=== PATIENT | male | born 1950 | race Caucasian/White ===

== ENCOUNTER 2024-09-29 13:20 | Emergency (ER) | payer MEDICARE, SELFPAY ==
[2024-09-29 13:32] VITALS: BP 184/97; PULSE 68; RESP 16; TEMP 36.6; O2SAT 98; BMI 27.3
--- NOTE | 2024-09-29 13:37 | PC.NURSE ---
Left wrist pain and swelling. Pulses intact. Pt denies any trauma to wrist. Pt skin warm and intact. Pt states he was seen for the same 3 weeks ago and was told he had osteoarthritis.
--- NOTE | 2024-09-29 13:48 | DI.RAD.S_ITS ---
PROCEDURE: XR WRIST LT MIN 3V INDICATIONS: wrist pain and swelling TECHNIQUE: 3 views of the wrist were acquired. COMPARISON: None. FINDINGS: Bones: No fractures or dislocations. Osteoarthritic changes are noted along radial aspect of left wrist. No suspicious bony lesions. Soft tissues: No suspicious soft tissue calcifications. IMPRESSION: No acute left wrist fracture or dislocation. Left wrist joint osteoarthritis. Dictated by: Sean Paredes M.D. on 09/29/2024 at 14:41 Approved by: Sean Paredes M.D. on 09/29/2024 at 14:41
--- NOTE | 2024-09-29 13:48 | ED_ITS ---
HPI - General Adult General Chief complaint: Extremity Injury, Upper Stated complaint: Left thumb pain Time Seen by Provider: 09/29/24 13:43 Source: patient Mode of arrival: Ambulatory Limitations: no limitations History of Present Illness HPI narrative: Patient is a 73-year-old male who is here for evaluation of swelling and discomfort to the left thumb/wrist. He reports that his symptoms started 7-14 days ago. No specific trauma. Did have his 1st evaluated. Was told that he had ?osteoarthritis? he states that the conservative measures that he has been doing have not been helping. He was discomfort of the thumb in the wrist. No fevers. No history of gout. Discomfort with movement of the left wrist. His left elbows unremarkable. Related Data Previous Rx's Medication Instructions Recorded prednisone 20 mg tablet 20 mg PO DAILY 5 days #5 tabs 09/29/24 Allergies Allergy/AdvReac Type Severity Reaction Status Date / Time No Known Drug Allergies Allergy Verified 09/29/24 13:37 Review of Systems Review of Systems Narrative: See HPI Patient History Social History Smoking Status: Former smoker Smoking Status: Former smoker Exam Initial Vital Signs Initial Vital Signs: Vital Signs Temperature 97.9 F 09/29/24 13:32 Pulse Rate 68 09/29/24 13:32 Respiratory Rate 16 09/29/24 13:32 Blood Pressure 184/97 H 09/29/24 13:32 Pulse Oximetry 98 09/29/24 13:32 Oxygen Delivery Method Room Air 09/29/24 13:32 Const General: cooperative and comfortable Cardio Pulses: radial pulses present on the left Skin General: no rashes or lesions noted Neuro Sensory Exam: no sensory deficits noted Extrem Other: Swelling to the radial aspect of the left wrist in the thenar aspect of the left thumb. Decreased range of motion with flexion and extension. Left elbows unremarkable. Course Orders Ordered: ED Orders 09/29/24 13:48 XR wrist LT min 3V Stat 09/29/24 14:06 Complete Blood Count AUTO DIFF Stat Comprehensive Metabolic Panel Stat Lipase Stat Uric Acid Stat Vital Signs Vital signs: Vital Signs - 8 hr 09/29/24 13:32 Temperature 97.9 F Pulse Rate 68 Respiratory Rate 16 Blood Pressure 184/97 H Pulse Oximetry 98 Oxygen Delivery Method Room Air Medical Decision Making Lab Data Lab results reviewed: Yes I reviewed the patient's lab results. 09/29/24 14:06 09/29/24 14:06 Labs: Lab Results 09/29/24 Range/Units 14:06 WBC 9.0 (4.5-11.0) X10^3/uL RBC 6.50 H (4.5-5.9) X10^6/uL Hgb 13.5 (13.5-17.5) g/dL Hct 43.2 (41-53) % MCV 66.4 L (80-100) fL MCH 20.8 L (26-34) PG MCHC 31.4 (30-36) % RDW 16.0 H (11.6-14.8) % Plt Count 139 L (150-400) X10^3/uL Neut % (Auto) 59.3 (50-75) % Lymph % (Auto) 26.4 (25-40) % [place] % (Auto) 8.8 (3-14) % Eos % (Auto) 4.1 H (2-4) % Baso % (Auto) 1.4 (0-2) % Neut # (Auto) 5300 (7760-1518) /uL Lymph # (Auto) 2400 (0087-3085) /uL [place] # (Auto) 800 (0-900) /uL Eos # (Auto) 400 (0-450) /uL Baso # (Auto) 100 (0-100) /uL RBC Morphology Not Reportable Poikilocytosis 1+ H Microcytosis 3+ H Sodium 138 (137-145) mmol/L Potassium 4.2 (3.4-5.1) mmol/L Chloride 108 H (98-107) mmol/L Carbon Dioxide 24 (22-32) mmol/L BUN 21 H (9-20) mg/dL Creatinine 1.07 (0.66-1.25) mg/dL Estimated GFR > 60 (>60) mL/min BUN/Creatinine Ratio 19.6 (6-22) Glucose 98 (80-110) mg/dL Uric Acid 6.8 (3.5-8.5) mg/dL Calcium 9.3 (8.4-10.2) mg/dL Total Bilirubin 0.9 (0.2-1.3) mg/dL AST 28 (17-59) IU/L ALT 25 (<50) IU/L Alkaline Phosphatase 72 (38-126) U/L Total Protein 7.3 (6.3-8.2) g/dL Albumin 4.2 (3.5-5.0) g/dL Globulin 3.1 (1.7-4.1) g/dL Albumin/Globulin Ratio 1.4 (1.0-2.8) Lipase 382 H (23-300) U/L Imaging Data Extremity x-ray #1: Radiologist's Impression: PROCEDURE: XR WRIST LT MIN 3V INDICATIONS: wrist pain and swelling TECHNIQUE: 3 views of the wrist were acquired. COMPARISON: None. FINDINGS: Bones: No fractures or dislocations. Osteoarthritic changes are noted along radial aspect of left wrist. No suspicious bony lesions. Soft tissues: No suspicious soft tissue calcifications. IMPRESSION: No acute left wrist fracture or dislocation. Left wrist joint osteoarthritis. MDM Narrative Medical decision making narrative: Patient's exam is not consistent with a cellulitis. Low suspicion for septic joint. Low suspicion for gout. X-ray shows no fractures. He has been diagnosed with arthritis which does correspond to his symptoms today. He does have a wrist brace given to him from the outside facility and I advised that he continue to wear this for soft tissue rest. He has been taking Tylenol without much improvement. Will put him on steroids for the next couple days. Advised that he follow up with his primary doctor. He was given return precautions. He expressed understanding and agreement. Discharge Plan Departure Patient Disposition: Home Clinical Impression: Arthritis Instructions: How To Perform RICE (Rest, Ice, Compress, Elevate), DI for Arthritis Activity Restrictions/Additional Instructions: I do recommend that you continue to use the wrist brace that you were given for soft tissue rest. Use ice over the area as well. Contact your primary care doctor for a follow-up. Return to the emergency department for new symptoms. Prescriptions: New prednisone 20 mg tablet 20 mg PO DAILY 5 Days Qty: 5 0RF Stand Alone Forms: Patient Portal/API/Survey
[2024-09-29 14:15] LABS: Add Manual Diff / Slide Review NO; Basophils Absolute Auto 100 /uL (0-100); Basophils Percent Auto 1.4 % (0-2); Eosinophils Absolute Auto 400 /uL (0-450); Eosinophils Percent Auto 4.1 % (2-4); Hematocrit 43.2 % (41-53); Hemoglobin 13.5 g/dL (13.5-17.5); Lymphocytes Absolute Auto 2400 /uL (1100-4500); Lymphocytes Percent Auto 26.4 % (25-40); Mean Corpuscular HGB Conc 31.4 % (30-36); Mean Corpuscular Hemoglobin 20.8 PG (26-34); Mean Corpuscular Volume 66.4 fL (80-100); Monocytes Absolute Auto 800 /uL (0-900); Monocytes Percent Auto 8.8 % (3-14); Neutrophils Absolute Auto 5300 /uL (1500-7000); Neutrophils Percent Auto 59.3 % (50-75); Platelet Count 139 X10^3/uL (150-400)
[2024-09-29 14:25] LABS: Alanine Aminotransferase 25 IU/L (<50); Albumin 4.2 g/dL (3.5-5.0); Albumin Globulin Ratio 1.4 (1.0-2.8); Alkaline Phosphatase 72 U/L (38-126); Aspartate Aminotransferase 28 IU/L (17-59); BUN Creatinine Ratio 19.6 (6-22); Bilirubin Total 0.9 mg/dL (0.2-1.3); Blood Urea Nitrogen 21 mg/dL (9-20); Calcium 9.3 mg/dL (8.4-10.2); Carbon Dioxide 24 mmol/L (22-32); Chloride 108 mmol/L (98-107); Estimated Glomerular Filt Rate > 60 mL/min (>60); Globulin 3.1 g/dL (1.7-4.1); Glucose 98 mg/dL (80-110); HEMOLYSIS < 15 (0-50); Lipase 382 U/L (23-300); Potassium 4.2 mmol/L (3.4-5.1); Sodium 138 mmol/L (137-145); Total Protein 7.3 g/dL (6.3-8.2); Uric Acid 6.8 mg/dL (3.5-8.5)
[2024-09-29 14:26] LABS: Poikilocytosis 1+
[2024-09-29 14:27] LABS: Microcytosis 3+
[2024-09-29 15:16] VITALS: BP 177/94; PULSE 61; RESP 16; O2SAT 99
== END 2024-09-29 15:16 | disposition home or self-care (01) ==
PROVIDERS: Emergency Provider Emergency Medicine
DX: M19.032 Primary osteoarthritis, left wrist (principal)
CPT/HCPCS: 36415; 73110; 80053; 83690; 84550; 85025; 99281; 99284